=== PATIENT | female | born 1945 | race Caucasian/White ===

== ENCOUNTER 2019-07-03 12:57 | Inpatient (IN) | payer OTHER ==
[~2019-07-03] VITALS: Ht 160 cm; Wt 88.2 kg
[~2019-07-03 12:57] MED LIST: ACET500T98 ORAL; ASPI325T32 PO; CHOL100062 ORAL; EZET10TA32 ORAL; FAMO-96 PO; MEDICAL NOTE; METO-448 PO; POTA20TA15 ORAL
[2019-07-03] MEDS ORDERED: SOD CHLORIDE 0.9% 1,000 ML IV STA (13:50)
[2019-07-03] MEDS ORDERED: DILTIAZEM 25 MG INJ IV ONE ×2 (14:00)
[2019-07-03] MEDS ORDERED: ACETAMINOPHEN 325 MG TAB PO PRN ×2 (15:30→16:00)
[2019-07-03] MEDS ORDERED: ONDANSETRON 4 MG INJ IV PRN ×2 (15:30→16:00)
[2019-07-03] MEDS ORDERED: NACL 0.9% 3 ML SYG IV SCH (16:00)
[2019-07-03] MEDS ORDERED: DOCUSATE SODIUM 100 MG CAP PO PRN (16:00)
[2019-07-03] MEDS ORDERED: morphine 2 MG INJ IV PRN (16:00)
[2019-07-03] MEDS ORDERED: BISACODYL (EC) 5 MG TAB PO PRN (16:00)
[2019-07-03] MEDS ORDERED: BISACODYL 10 MG SUPP PR PRN (16:00)
[2019-07-03 23:15] VITALS: Ht 160 cm; Wt 88.2 kg
[2019-07-03] MEDS: HYDROCODONE/APAP (5/325) TAB PO PRN (23:49)
[2019-07-03] MEDS: SOD CHLORIDE 0.9% 1,000 ML IV SCH (23:49)
[2019-07-03] MEDS: ZOLPIDEM 5 MG TAB PO PRN (23:49)
[2019-07-03] MEDS: FAMOTIDINE 20 MG TAB PO SCH (23:49)
[2019-07-04] VITALS: BP 135/72; PULSE 98; RESP 18
[2019-07-04] MEDS: SOD CHLORIDE 0.9% 1,000 ML IV SCH ×2 (01:52→13:06)
[2019-07-04 04:00] VITALS: BP 118/66; PULSE 90; RESP 18
[2019-07-04 07:42] VITALS: BP 108/63; PULSE 91; RESP 18
[2019-07-04] MEDS: ENOXAPARIN 40 MG/0.4 ML SYG SC SCH (09:09)
[2019-07-04 11:17] VITALS: BP 114/62; PULSE 95; RESP 18
[2019-07-04] MEDS: METOPROLOL 25 MG TAB PO SCH ×2 (13:06→21:18)
[2019-07-04 15:05] VITALS: BP 109/55; PULSE 65; RESP 18
[2019-07-04] MEDS: EZETIMIBE 10 MG TAB PO SCH (17:13)
[2019-07-04 20:00] VITALS: BP 113/58; PULSE 74; RESP 18
[2019-07-04] MEDS: FAMOTIDINE 20 MG TAB PO SCH (21:17)
[2019-07-04] MEDS: HYDROCODONE/APAP (5/325) TAB PO PRN (21:17)
[2019-07-04] MEDS: ZOLPIDEM 5 MG TAB PO PRN (21:17)
[2019-07-05] VITALS: BP 109/55; PULSE 56; RESP 19
[2019-07-05 04:00] VITALS: BP 103/63; PULSE 64; RESP 18
[2019-07-05 07:09] VITALS: BP 108/58; PULSE 73; RESP 16
[2019-07-05] MEDS: METOPROLOL 25 MG TAB PO SCH (09:00)
[2019-07-05] MEDS ORDERED: ASPIRIN (EC) 325 MG TAB PO SCH (09:00)
[2019-07-05] MEDS: EZETIMIBE 10 MG TAB PO SCH (09:10)
[2019-07-05] MEDS: ENOXAPARIN 40 MG/0.4 ML SYG SC SCH (09:15)
[2019-07-05 11:04] VITALS: BP 112/64; PULSE 75; RESP 18
== END 2019-07-05 13:34 | disposition home or self-care (01) | DRG 310 ==
LOC: E/R 12:57 → TEL 15:17
PROVIDERS: ADMIT Internal Medicine; ATTEND Internal Medicine
DX: I48.92 Unspecified atrial flutter (principal); I47.1 Supraventricular tachycardia; E11.9 Type 2 diabetes mellitus without complications; E78.5 Hyperlipidemia, unspecified; E88.81 Metabolic syndrome and other insulin resistance; E66.9 Obesity, unspecified; M17.11 Unilateral primary osteoarthritis, right knee; I10 Essential (primary) hypertension
CPT/HCPCS: 36415; 71045; 80048; 80053; 80061; 82550; 82553; 82962; 83036; 83735; 83880; 84100; 84443; 84484; 85025; 85610; 85730; 93005; 93306; 93970; J1650; J7030